=== PATIENT | female | born 1970 | race Hispanic/Latino ===

== ENCOUNTER 2024-09-01 13:11 | Emergency (ER) | payer BC ==
[~2024-09-01] VITALS: Ht 160 cm; Wt 83.9 kg
[2024-09-01 13:33] LABS: BASOPHILS # (AUTO) 0.04 K/uL (0.00-0.20); BASOPHILS % (AUTO) 0.5 % (0.0-5.0); EOSINOPHILS # (AUTO) 0.11 K/uL (0.00-0.70); EOSINOPHILS % (AUTO) 1.3 % (0.0-8.0); HEMATOCRIT 37.9 % (36-48); IMMATURE GRANULOCYTE ABSOLUTE 0.02 K/uL (0-1); LYMPHOCYTES # (AUTO) 2.9 K/uL (1.0-4.8); LYMPHOCYTES % (AUTO) 35.1 % (21.0-51.0); MEAN CORPUSCULAR HEMOGLOBIN 28.7 pg (27.0-33.0); MEAN CORPUSCULAR VOLUME 86.9 fL (79-99); MONOCYTES # (AUTO) 0.5 K/uL (0.1-1.0); NEUTROPHILS # (AUTO) 4.7 K/uL (1.8-7.7); NEUTROPHILS % (AUTO) 56.9 % (40.0-77.0); PLATELET COUNT (AUTO) 223 K/uL (130-400); RED BLOOD CELL COUNT(AUTO) 4.36 MIL/uL (4.00-5.50); RED CELL DISTRIBUTION WIDTH 14.1 % (11.0-15.5); WHITE BLOOD COUNT (AUTO) 8.2 K/uL (4.8-10.8)
[2024-09-01] MEDS: FAMOTIDINE 20MG VIAL IV STA (13:36)
[2024-09-01] MEDS: ondanSETRON 4MG INJ IVP STA (13:36)
[2024-09-01] MEDS: morPHINE 2 MG SYG IVP STA (13:37)
[2024-09-01 13:41] LABS: APPEARANCE,URINE CLEAR (CLEAR); BILIRUBIN,URINE NEGATIVE (NEGATIVE); COLOR,URINE YELLOW (YELLOW); CREATININE 0.7 mg/dL (0.5-1.0); GLUCOSE, URINE (UA) NEGATIVE (NEGATIVE); KETONES,URINE NEGATIVE (NEGATIVE); LEUKOCYTE ESTERASE ,URINE NEGATIVE Leu/uL (NEGATIVE); NITRATE,URINE NEGATIVE (NEGATIVE); OCCULT BLOOD,URINE NEGATIVE (NEGATIVE); PH,URINE 6.5 (5.0-8.0); POTASSIUM 3.2 mmol/L (3.5-5.1); PROTEIN,URINE NEGATIVE (NEGATIVE)
[2024-09-01 13:45] LABS: ADD UA MICROSCOPIC YES
[2024-09-01 13:46] LABS: MUCUS,URINE RARE LPF (None Seen); SQUAMOUS EPITHELIAL CELL,UR RARE /HPF (0-2)
[2024-09-01 13:49] LABS: BILIRUBIN,DIRECT 0.2 mg/dL (0.0-0.3); BILIRUBIN,TOTAL 1.3 mg/dL (0.2-1.0); TOTAL PROTEIN, SERUM 7.5 g/dL (6.0-8.3)
[2024-09-01] MEDS ORDERED: IOHEXOL-350 75 ML VIAL IV ONE (14:00)
--- NOTE | 2024-09-01 15:47 | HMCIMG ---
CT ABDOMEN/PELVIS W/WO CONTRAS HISTORY: Epigastric pain COMPARISON: None TECHNIQUE: Multiple sequential axial images of the abdomen and pelvis were obtained from the dome of the diaphragm through symphysis pubis. Patient was given 75 cc of Omnipaque through intravenous route. Oral contrast was not given. FINDINGS: No pleural effusion is seen bilaterally. There is no evidence of parenchymal disease or pulmonary nodule of the visualized lower lungs. Degenerative changes of the thoracolumbar spine are present. The heart is not enlarged. The liver, spleen, adrenal glands and pancreas are unremarkable. No hydronephrosis is seen on the right. There is minimal left hydronephrosis with 2 mm renal stone in the left distal ureter. Fecal material is seen in the colon. There are normal size retroperitoneal and mesenteric lymph nodes. No ascites is seen. Atherosclerotic changes are present. Pelvic sidewalls are symmetric bilaterally. The bladder is poorly distended. IMPRESSION: 1. Minimal left hydronephrosis with 2 mm renal stone in the left distal ureter. CT was performed with one or more following dose reduction techniques: automated exposure control, adjustment of the mA and kv according to patient's size, or use of a iterative reconstruction technique.
--- NOTE | 2024-09-01 15:58 | ERN ---
ED Note History of Present Illness Stated Complaint: ABDOMINAL PAIN Chief Complaint: Abdominal Pain Time Seen by MD: 13:12 Time Seen by Midlevel: 13:15 Dictation: 52-year-old female coming in with complaints of epigastric pain and left lower quadrant pain. Patient states she has not appointment with her PCP and GI which told her she needed to do a CT scan but states she has not gone due to working all the time. This time patient is complaining of epigastric pain with no nausea or vomiting, and left lower quadrant pain with no diarrhea. Denies having any fevers, chest pain, chest discomfort. Allergies: Coded Allergies: No Known Drug Allergies (Unverified Allergy, Unknown, 09/01/24) Home Meds Active Scripts Tamsulosin HCl (Flomax) 0.4 Mg Cap.er.24h, 0.4 MG PO DAILY for 7 Days, #7 CAPSULE. Prov:BHANU ULLOA FIRER LOCOMOTIVE 09/01/24 Past Medical History Past Medical History: Diabetes-Type II, High Cholesterol, Hypertension Surgical History: None Review of System Dictation Constitutional: Negative for fever,chills, and weight loss Eyes: Negative for injury, pain,redness, and discharge ENT: Negative for injury,pain or swelling Cardiovascular: Negative for chest pain, palpitations, and edema Respiratory: Negative for shortness of breath, cough, and wheezing, Abdomen/GI: Complaining of left lower quadrant pain, no nausea, no vomiting, no diarrhea, and no constipation Back: Negative for injury and pain : Negative for injury, bleeding and discharge MS/Extremity: Negative for injury and deformity Skin: Negative for rash, and discoloration Neuro: Negative for headache, weakness, numbness, tingling, and seizure Psych: Negative for suicide ideation, homicidal ideation, and hallucinations Review of Systems: was completed Initial Vital Sign VS Vital Signs Date Time Temp Pulse Resp B/P (MAP) Pulse Ox O2 Delivery O2 Flow Rate FiO2 09/01/24 13:14 98.2 68 18 130/87 98 Room Air 09/01/24 13:47 0 21 Physical Exam Dictation General: awake, alert, NAD Head/Face: Normocephalic, atraumatic Eyes: PERRL, EOMI, vision at baseline ENT: oral cavity clear, TMs clear, no signs of infection Neck: Trachea midline, supple, no nuchal rigidity Cardiovascular: RRR, normal S1/S2, No MRGs, no JVD Respiratory: CTAB, no respiratory distress, No rales or wheezes Abdomen: Soft, non-tender, non-distended, normal bowel sounds, no guarding or rebound. Skin: Warm, dry, normal turgor, no rash MS/Extremity: Pulses equal, no cyanosis, neurovascular intact, FROM Neuro: COAx4, GCS 15, strength 5/5, CN 2-12 intact, normal cerebellar exam, normal gait, Psych: Normal behavior, mood, and affect normal Results (Laboratory/Radiology) Laboratory/Radiology Laboratory Tests Test 09/01/24 13:25 White Blood Count 8.2 K/uL (4.8-10.8) Red Blood Count 4.36 MIL/uL (4.00-5.50) Hemoglobin 12.5 g/dL (12.0-16.0) Hematocrit 37.9 % (36-48) Mean Corpuscular Volume 86.9 fL (79-99) Mean Corpuscular Hemoglobin 28.7 pg (27.0-33.0) Mean Corpuscular Hemoglobin Concent 33.0 g/dL (32.0-36.0) Red Cell Distribution Width 14.1 % (11.0-15.5) Platelet Count 223 K/uL (130-400) Mean Platelet Volume 10.7 fL (7.5-10.5) H Immature Granulocyte % (Auto) 0.2 % (0-1) Neutrophils (%) (Auto) 56.9 % (40.0-77.0) Lymphocytes (%) (Auto) 35.1 % (21.0-51.0) Monocytes (%) (Auto) 6.0 % (3.0-13.0) Eosinophils (%) (Auto) 1.3 % (0.0-8.0) Basophils (%) (Auto) 0.5 % (0.0-5.0) Neutrophils # (Auto) 4.7 K/uL (1.8-7.7) Lymphocytes # (Auto) 2.9 K/uL (1.0-4.8) Monocytes # (Auto) 0.5 K/uL (0.1-1.0) Eosinophils # (Auto) 0.11 K/uL (0.00-0.70) Basophils # (Auto) 0.04 K/uL (0.00-0.20) Absolute Immature Granulocyte (auto 0.02 K/uL (0-1) Nucleated Red Blood Cells 0.0 % (0.0-0.19) Urine Color YELLOW (YELLOW) Urine Appearance CLEAR (CLEAR) Urine pH 6.5 (5.0-8.0) Urine Specific [place] 1.032 (1.001-1.031) Urine Protein NEGATIVE mg/dL (NEGATIVE) Urine Glucose (UA) NEGATIVE mg/dL (NEGATIVE) Urine Ketones NEGATIVE mg/dL (NEGATIVE) Urine Occult Blood NEGATIVE (NEGATIVE) Urine Nitrate NEGATIVE (NEGATIVE) Urine Bilirubin NEGATIVE mg/dL (NEGATIVE) Urine Urobilinogen 2.0 mg/dL (0.2-1.0) H Urine Leukocyte Esterase NEGATIVE Sonya/uL Urine RBC 2-5 /HPF (0-1) H Urine WBC 2-5 /HPF (0-1) H Urine Squamous Epithelial Cells RARE /HPF (0-2) Urine Bacteria None /HPF (None Seen) Sodium Level 145 mmol/L (136-145) Potassium Level 3.2 mmol/L (3.5-5.1) L Chloride Level 108 mmol/L (101-111) Carbon Dioxide Level 29 mmol/L (21-32) Blood Urea Nitrogen 18 mg/dL (7-18) Creatinine 0.7 mg/dL (0.5-1.0) Glomerular Filtration Rate Calc 103 mL/min (>90) Random Glucose 88 mg/dL (70-105) Total Calcium 8.4 mg/dL (8.5-10.1) L Total Bilirubin 1.3 mg/dL (0.2-1.0) H Direct Bilirubin 0.2 mg/dL (0.0-0.3) Aspartate Amino Transf (AST/SGOT) 14 U/L (10-37) Alanine Aminotransferase (ALT/SGPT) 19 U/L (12-78) Alkaline Phosphatase 115 U/L (50-136) Total Protein 7.5 g/dL (6.0-8.3) Albumin 4.0 g/dL (3.5-5.0) Lipase 54 U/L (16-77) Labs Reviewed?: Yes EKG Comment: EKGs did not 1606, sinus rhythm, rate of 65. Low voltage, precordial leads. Borderline T abnormalities, diffuse leads. No STEMI interpreted by ER CT Scan Comment: [facility] [address] [place], [place] [id number] IMAGING REPORT Signed PATIENT: RADHAMES CLAUDIO MR#: [id number] : 1970 SEX: F AGE: 53 LOCATION: [facility] ORDER [id number] STATUS: REG ER REPORT#: [id number] SERVICE [id number] REASON: llq pain ORDERING PHYSICIAN: BHANU ULLOA NP PROCEDURE: ABD PELWWO - CT ABDOMEN/PELVIS W/WO CONTRAS CT ABDOMEN/PELVIS W/WO CONTRAS HISTORY: Epigastric pain COMPARISON: None TECHNIQUE: Multiple sequential axial images of the abdomen and pelvis were obtained from the dome of the diaphragm through symphysis pubis. Patient was given 75 cc of Omnipaque through intravenous route. Oral contrast was not given. FINDINGS: No pleural effusion is seen bilaterally. There is no evidence of parenchymal disease or pulmonary nodule of the visualized lower lungs. Degenerative changes of the thoracolumbar spine are present. The heart is not enlarged. The liver, spleen, adrenal glands and pancreas are unremarkable. No hydronephrosis is seen on the right. There is minimal left hydronephrosis with 2 mm renal stone in the left distal ureter. Fecal material is seen in the colon. There are normal size retroperitoneal and mesenteric lymph nodes. No ascites is seen. Atherosclerotic changes are present. Pelvic sidewalls are symmetric bilaterally. The bladder is poorly distended. IMPRESSION: 1. Minimal left hydronephrosis with 2 mm renal stone in the left distal ureter. CT was performed with one or more following dose reduction techniques: automated exposure control, adjustment of the mA and kv according to patient's size, or use of a iterative reconstruction technique. DICTATED BY: ANGELINE ROSALES MD DATE: 09/01/241542 ELECTRONICALLY SIGNED BY: ANGELINE ROSALES MD DATE: 09/01/241546 ED Course ED Course Orders Procedure Category Date Status Time Cbc With Differential LAB 09/01/24 Complete 13:18 Basic Metabolic Panel LAB 09/01/24 Complete 13:18 Lipase LAB 09/01/24 Complete 13:18 Hepatic Function Panel LAB 09/01/24 Complete 13:18 Urinalysis Profile LAB 09/01/24 Complete 13:18 Ct Abdomen/Pelvis CT 09/01/24 Resulted W/Wo Contras 13:18 Ondansetron 4mg Inj PHA 09/01/24 Complete (Zofran 4mg Inj) 13:19 Famotidine 20mg Vial PHA 09/01/24 Complete (Pepcid 20mg Vial) 13:19 Morphine 2mg Syg PHA 09/01/24 Complete (Morphine 2mg Syg) 13:19 Iohexol (Omnipaque) PHA 09/01/24 Complete 14:00 Potassium Bicarb/Cit PHA 09/01/24 Complete Ac 25meq (K-Lyte Ta 15:40 12 Lead Ekg Tracing- EKG 09/01/24 Logged Technical 15:59 Current Medications Medications (Trade) Dose Ordered Sig/Luc Route PRN Reason Start Time Stop Time Status Last Admin Dose Admin Famotidine (Pepcid 20mg Vial) 20 mg ONCE STAT IV 09/01/24 13:19 09/01/24 13:29 DC 09/01/24 13:36 Iohexol (Omnipaque) 75 ml STK-MED ONCE IV 09/01/24 14:00 09/01/24 14:00 DC Morphine Sulfate (morPHINE 2MG SYG) 2 mg ONCE STAT IVP 09/01/24 13:19 09/01/24 13:29 DC 09/01/24 13:37 Ondansetron HCl (zoFRAN 4MG INJ) 4 mg ONCE STAT IVP 09/01/24 13:19 09/01/24 13:29 DC 09/01/24 13:36 Potassium Bicarbonate (K-Lyte Tablet Eff 25 Meq Tablet.eff) 50 meq ONCE STAT PO 09/01/24 15:40 09/01/24 15:45 DC 09/01/24 15:59 Vital Signs Date Time Temp Pulse Resp B/P (MAP) Pulse Ox O2 Delivery O2 Flow Rate FiO2 09/01/24 15:00 98.2 78 18 130/78 98 Room Air* 0 21 09/01/24 13:47 78 18 135/91 99 Room Air* 0 21 09/01/24 13:14 98.2 68 18 130/87 98 Room Air Medical Decision Making MDM MDM: CBC shows no leukocytosis, no anemia, no thrombocytopenia. Chemistry shows hypokalemia, of 3.2, replacement given in the ER. Normal kidney function. UA shows no evidence of urinary tract infection. CT scan of the abdomen shows a minimal left hydronephrosis with a 2 mm renal stone in the left distal ureter. This could be attributing to the patient's left lower quadrant pain. Discussed findings with the patient. Educated patient that I will prescribe her Flomax and she needs to follow up with the Urology or PCP. Discussed with the patient if she starts to develop any fevers, nausea or vomiting to report back to the emergency room. Patient verbalized understanding, answered all questions. Differential diagnosis: Diverticulitis, kidney stone, urinary tract infection, gastritis Rationale: Tests considered and ordered secondary to shared decision making include: Previous outside records reviewed: Old ER visits. Risk of complication and/or morbidity or mortality of patient management: None Medications-Per medication reconciliation Need for hospitalization: Patient does not meet criteria for hospitalization. Need for emergency major/minor surgery: No There are no social concerns with this patient. Prescription drug management Prescriptions will include symptomatic care Patient's prior external medical records from other ER visits were reviewed by me as indicated. Prior testing and results from previous visits were reviewed. Prior tests were taken into account with medical decision making and resource utilization, independent historian/historians were used to obtain complete medical history. I independently interpreted the test that were performed, results were reviewed by me and considered findings on radiology if ordered. Medical management and examination interpretation discussions were had by me with other qualified healthcare professionals as indicated for the patient's care. DX & DISP Disposition: Discharge Departure Impression: Primary Impression: Left ureteral stone Condition: Stable Scripts Tamsulosin HCl (Flomax) 0.4 Mg Cap.er.24h 0.4 MG PO DAILY for 7 Days, #7 CAPSULE.DR Prov: BHANU ULLOA NP 09/01/24 Referrals: SELF,REFERRAL (PCP) Time of Disposition: 16:16 I have reviewed the case, and I agree with, Diagnosis and Plan BHANU ULLOA NP Sep 01, 2024 15:58
[2024-09-01] MEDS: PoTASSium BIcarbonate/CIT AC 25 MEQ TABLET.EFF PO STA (15:59)
[2024-09-01] MEDS ORDERED: TAMS-55 PO (16:13)
[2024-09-01 16:26] VITALS: BP 120/69; PULSE 78; RESP 18; TEMP 98.2; O2SAT 98
--- NOTE | 2024-09-01 21:12 | EKG ---
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
== END 2024-09-01 16:26 | disposition home or self-care (01) ==
LOC: EDH 13:11
DX: N13.2 Hydronephrosis with renal and ureteral calculous obstruction (principal); E11.9 Type 2 diabetes mellitus without complications; E78.00 Pure hypercholesterolemia, unspecified; I10 Essential (primary) hypertension; Z79.899 Other long term (current) drug therapy
CPT/HCPCS: 99284; 74178; 96374; 96375; 80076; 80048; 83690; 85025; 81001; 36415; 93005; J3490; J2270; J2405; Q9967